=== PATIENT | female | born 1985 | race Caucasian/White ===

== ENCOUNTER → 2020-09-25 06:32 | Outpatient (CLI) | payer OTHER, SELFPAY ==
[2020-09-25 16:43] LABS: SARS-CoV-2 RNA PCR Positive
== END ==
PROVIDERS: PCP Physician Assistant; Visit Provider Physician Assistant
DX: U07.1 COVID-19 (principal); R68.89 Other general symptoms and signs
CPT/HCPCS: C9803; U0003; U0005

== ENCOUNTER 2021-09-25 18:29 | Emergency (ER) | payer OTHER, SELFPAY ==
--- NOTE | ~2021-09-25 | CT_ITS ---
Report EXAMINATION: CT abdomen pelvis w con DATE: 09/25/2021 21:08 INDICATION: LLQ pain, fever TECHNIQUE: Computed tomography (CT) of the abdomen and pelvis was performed with 100 mL Omnipaque-300 intravenous contrast. Automated exposure control and iterative reconstruction technique were employe d. The dose-length product was 474.37 mGy-cm. COMPARISON: None. FINDINGS: Lower thorax: Unremarkable Liver: Normal. Biliary/Gallbladder: Partially contracted. No bile duct dilation. Pancreas: No mass or duct dilation. Spleen: Normal. Adrenals:No mass. Kidneys: Subtle patchy areas of hypoenhancement in the left kidney, with minimal surrounding inflamma tory change. No renal mass or hydronephrosis. GI tract: No small or large bowel dilation. Normal appendix. Mesentery/Peritoneum: No ascites, mass, or free air. Retroperitoneum: No mass. Pelvis: Pelvic organs are within normal limits. Soft Tissues: Soft tissues and body wall unremarkable. Bones: No acute osseous finding. IMPRESSION: CT findings may represent left pyonephritis in the appropriate clinical context. Reviewed, dictated and finalized at location K. IMPRESSION: CT findings may represent left pyonephritis in the appropriate clinical context .
[2021-09-25 18:32] VITALS: BP 137/92; PULSE 98; RESP 18; TEMP 37; O2SAT 100
--- NOTE | 2021-09-25 19:19 | ED.GENADULT ---
HPI - General Adult General Chief complaint: Upper Respiratory Infection Stated complaint: FEVER,ABD PAIN Time Seen by Provider: 09/25/21 18:54 History of Present Illness HPI narrative: 36-year-old female presented to the emergency department for evaluation of nausea vomiting with fever and associated left lower quadrant abdominal pain. Patient states on Sunday after work she began feeling poorly. At that time patient was having nausea and vomiting. Patient did follow-up with urgent care on Sunday and was tested for strep COVID flu and this was all negative. Due to her underlying history of psoriasis and being on a biological the physician did start her on amoxicillin. Patient presents to the ED complaining of persistent fever that is treated with Tylenol. Patient is having left lower quadrant pain. Patient states she does have a prior history of ovarian cyst but states this was approximately 10 years ago. Patient denies any associated diarrhea. Related Data Allergies Allergy/AdvReac Type Severity Reaction Status Date / Time No Known Allergies Allergy Mild Unverified 10/28/09 19:07 Review of Systems Review of Systems: CONSTITUTIONAL: See HPI EYES: Denies visual changes, redness, or discharge. ENT: Denies rhinorrhea, congestion, sore throat, or otalgia. CARDIOVASCULAR: Denies chest pain, palpitations, or edema. RESPIRATORY: Cough GASTROINTESTINAL: See HPI GENITOURINARY: Denies dysuria or hematuria. SKIN: Denies rash or itching. MUSCULOSKELETAL: Denies back pain, joint pain, or myalgia. NEUROLOGIC: Denies headache, numbness, or weakness. Exam Narrative: APPEARANCE: Well appearing, no pain, no distress, well-nourished. HEAD: normocephalic, atraumatic. EYES: PERRLA/EOMI, conjunctivae clear. NOSE: Normal no drainage THROAT: Pharynx clear, no exudate. NECK: Supple. No adenopathy, no masses. RESPIRATORY: Airway patent, respirations nonlabored. Clear to auscultation bilaterally, no rales, rhonchi, wheezing. CARDIOVASCULAR: Regular rate and rhythm without murmurs rubs or gallops. ABDOMINAL: Soft, suprapubic and left lower quadrant pain MUSCULOSKELETAL: Moves all extremities. Strength/ROM intact, No edema, No calf tenderness. NEURO: Alert. Cranial nerves II through XII intact. Grossly intact SKIN: Warm, dry. Normal Color PSYCHIATRIC: Normal affect/mood. Course Course Emergency Course: Patient does have a leukocytosis of 13. No significant abnormalities on the CMP. Patient does have leukoesterase positive urine with trace bacteria. Patient has been taking amoxicillin. Due to the possibility of this being partially treated urinary tract infection patient was treated with an IV dose of Rocephin and also switched from amoxicillin to Keflex. Patient was updated on the results of the imaging and plan for change in her antibiotic regiment. All questions and concerns were addressed. Patient was stable at time of discharge. Vital Signs Vital signs: Vital Signs Temperature 98.6 F 09/25/21 18:32 Pulse Rate 98 09/25/21 18:32 Respiratory Rate 18 09/25/21 18:32 Blood Pressure 137/92 H 09/25/21 18:32 Pulse Oximetry 100 09/25/21 18:32 Oxygen Delivery Room Air 09/25/21 18:32 Temperature 98.6 F 09/25/21 18:32 Pulse Rate 98 09/25/21 18:32 Respiratory Rate 18 09/25/21 18:32 Blood Pressure 137/92 H 09/25/21 18:32 Pulse Oximetry 100 09/25/21 18:32 Oxygen Delivery Room Air 09/25/21 18:32 Medical Decision Making Vital Signs Vital Signs: Vital Signs Temperature 98.6 F 09/25/21 18:32 Pulse Rate 98 09/25/21 18:32 Respiratory Rate 18 09/25/21 18:32 Blood Pressure 137/92 H 09/25/21 18:32 Pulse Oximetry 100 09/25/21 18:32 Oxygen Delivery Room Air 09/25/21 18:32 Temperature 98.6 F 09/25/21 18:32 Pulse Rate 98 09/25/21 18:32 Respiratory Rate 18 09/25/21 18:32 Blood Pressure 137/92 H 09/25/21 18:32 Pulse Oximetry 100 09/25/21 18:32 Oxygen Delivery Room Air
[2021-09-25] MEDS: HYDROmorphone HCL INJ (*CRX) 1 MG/ML SYR 0.5 MG IV PUSH (19:31)
[2021-09-25] MEDS: ONDANSETRON INJ 4 MG/2 ML VIAL IV PUSH (19:32)
[2021-09-25] MEDS: SODIUM CHLORIDE 0.9% IV 1,000 ML 999 ML IV CONT (19:32)
[2021-09-25 19:42] LABS: Basophils Percent Auto 0.2 % (0.2-1.2); Eosinophils Absolute Auto 0.1 K/mm3 (0-0.3); Eosinophils Percent Auto 0.7 % (0-4.4); Hematocrit 39.6 % (37.0-47.0); Hemoglobin 13.3 g/dL (12.0-15.0); Immature Granulocyte Absolute 0.07 K/mm3 (0.00-0.031); Immature Granulocyte Percent A 0.5 % (0-0.5); Lymphocytes Absolute Auto 3.09 K/mm3 (0.9-3.2); Lymphocytes Percent Auto 23.9 % (18.3-44.2); Mean Corpuscular HGB Conc 33.6 g/dl (32-36); Mean Corpuscular Hemoglobin 29.6 pg (26-34); Mean Corpuscular Volume 88.2 fl (80-100); Mean Platelet Volume 9.8 fl (7.4-10.4); Monocytes Absolute Auto 1.1 K/mm3 (0.1-0.6); Monocytes Percent Auto 8.2 % (2.6-8.5); Neutrophils Absolute Auto 8.6 K/mm3 (1.3-6.7); Neutrophils Percent Auto 66.5 % (45.5-73.1); Platelet Count Result 305 k/mm3 (150-375); Red Blood Count 4.49 M/mm3 (4.2-5.4); Red Cell Distribution Width 12.2 % (11.5-14.5)
[2021-09-25 19:46] LABS: Appearance Urine Clear (Clear); Bilirubin Urine Negative (Negative); Glucose Urine UA Negative (Negative); Ketones Urine Negative (Negative); Leukocyte Esterase Ur 1+ LEU/UL (Negative); Nitrate Urine Negative (Negative); Protein Urine Negative (Negative); Urobilinogen Urine 0.2 mg/dL (<2.0)
[2021-09-25 19:50] LABS: Bacteria Urine Trace /hpf; RBC Urine 0-2 /hpf (0-2); Squamous Epithelial Cell Urine Few /hpf (Few); WBC Urine 0-3 /hpf
[2021-09-25 19:52] LABS: Lactic Acid Reflex 0.8 mmol/L (0.7-2.0)
[2021-09-25 19:53] LABS: Alanine Aminotransferase 63 U/L (6-35); Albumin Level 4.9 g/dL (3.5-5.1); Alkaline Phosphatase 67 U/L (38-126); Anion Gap 11 mmol/L (8-16); Aspartate Amino Transferase 44 U/L (14-36); Bilirubin,Total 0.4 mg/dL (0.2-1.3); Blood Urea Nitrogen 12 mg/dL (7-17); Calcium 9.8 mg/dL (8.4-10.2); Carbon Dioxide 31 mmol/L (22-30); Chloride 98 mmol/L (98-107); Estimated CRCL calculation 66 ml/min; Estimated Glomerular Filt Rate > 60; Glucose 104 mg/dL (65-110); Lipase 198 U/L (23-300); Potassium 3.6 mmol/L (3.4-5.0); Sodium 140 mmol/L (137-145)
[2021-09-25 20:01] LABS: Color Urine Straw (Yellow)
[2021-09-25 20:02] LABS: Add Urine Microscopic? YES; Blood Urine Trace-Intact (Negative)
[2021-09-25 20:22] LABS: SARS-CoV-2 RNA PCR Negative
== END 2021-09-25 22:01 | disposition home or self-care (01) ==
PROVIDERS: Emergency Provider Emergency Medicine; PCP Physician Assistant
DX: R50.9 Fever, unspecified (principal); R10.32 Left lower quadrant pain; Z20.822 Contact with and (suspected) exposure to COVID-19
CPT/HCPCS: 36415; 74177; 80053; 81001; 81025; 83605; 83690; 85025; 96361; 96365; 96375; 99284; C9803; J0696; J1170; J2405; J7030; Q9967; U0003; U0005

== ENCOUNTER 2023-11-01 01:36 | Day surgery (SDC) | payer BC, SELFPAY ==
--- NOTE | 2023-10-29 18:13 | PC.NURSE ---
Report to the Outpatient Waiting Room, entrance under the green pavilion located off [facility], at time ___0615____ on date [phone] . Planned Procedure Time: ____15____.? Time changes happen often and if your time is changed the preop area will call you the afternoon before. - You and your visitor will be asked to self-screen and do not enter if you have any COVID symptoms. Please call surgeon if you need to reschedule. - A mask is optional within the hospital at this time. Patients may have clear liquids (water, carbonated beverages, clear teas, apple juice) until 3 hours prior to surgery with a maximum of 20 ounces.(Stop at 0515) - No food from midnight until time of surgery and no smoking - Take only the following medications with a SIP of water on the morning of surgery: only paxil DO NOT STOP ANY OF YOUR OTHER PRESCRIPTION MEDICATIONS PRIOR TO SURGERY EXCEPT THE FOLLOWING Medications to discontinue per physician Stop vitamins and supplements TODAY. Do not take spironolactone the morning of surgery_. Please no make-up, nail vietnamese, hairspray, perfume, deodorant, or body powder the day of surgery.? No jewelry (including any body piercings) or valuables the day of surgery, leave them at home.? Please take a shower or bath the night before, or the morning of, surgery with an antibacterial soap.? Wear comfortable, loose fitting clothing.? - Jewelry must be removed prior to entering the operating room.? Rings and piercings that are not removed may be cut off. - The hospital will not accept responsibility for valuables.? - Please leave all valuables, including medications, at home the day of surgery. If you are going home after surgery, a licensed seasonal delivery driver must drive you home.? - NO public transportation without another adult if you receive anesthesia. - We recommend that an adult stay with you for 24 hours following discharge. - We also recommend that you do not drive, make important decision, drink alcoholic beverages, or take any drugs that were not prescribed by your health care provider for at least 24 hours after your discharge time. Follow any additional instructions given to you from your surgeon. Telephone instructions given to Dayday (patient) and asked if any additional questions and then verbalized understanding. Patient advised to call surgeon office or pre surgery nurse liaison [phone] if any additional questions.
[2023-10-29 18:18] VITALS: BMI 25.8
--- NOTE | 2023-10-31 13:45 | PM.IMHP ---
H&P: HPI History of Present Illness Date/Time: 10/31/23 13:45 38-year-old female presents for evaluation of irregular bleeding. Her menstrual cycles occur at 6-8 week intervals, this is not a particular concern as the bleeding is not particularly heavy. Also has noted bleeding after intercourse. Not currently on any type of control as her has had a vasectomy, future childbearing not of interest at this point. Does have a history of abnormal Pap smear in the past, most recent Pap smear was without abnormality and negative for HPV. Chief Complaint: Irregular bleeding Review of Systems Review of Systems: All systems reviewed & are unremarkable except as noted in HPI and below PMFSH Past Medical History Medical History Abnormal mammogram 10-07-2019 left breast asymmetrical dense tissue Dx mammogram and US done 10/09/2019 Benign recommend Annual screenings Abnormal Pap smear of cervix 11/01/05 LGSIL; 11/27/05 COLP/BX BENIGN ENDOCX TISSUES Anxiety Arthritis with psoriasis Encounter for IUD insertion 03/02/08 Mirena insertion 08/13/12 Mirena insertion Encounter for IUD removal 12/29/10 Mirena removal 02/12/13 Mirena removal Kidney infection Microcalcification of left breast on mammogram Screening mammogram, encounter for Sleep apnea Surgical History Surgical History History of colposcopy with cervical biopsy 11/27/05 benign History of dilation and curettage (~2010) History of intraocular lens implant (~07/2015) History of photorefractive keratectomy (PRK) (~11/2015) History of wisdom tooth extraction (~2003) Family History Family History Mother Malignant tumor of ovary Grandparent Malignant tumor of ovary maternal grandmother Breast cancer maternal grandmother Hypertension Diabetes mellitus Other Malignant tumor of ovary maternal aunt Breast cancer maternal aunt Father Hypertension Diabetes mellitus Heart disease Social History Social History (Updated 05/16/23 @ 13:43 by MELISA Sargent) Smoking status: Never smoker Second hand tobacco smoke exposure: No Alcohol intake: never Alcohol use details: 1 a month ? 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 Gender identity (if verbalized by the patient): Female Sexual Orientation (if Verbalized by the Patient): Straight or Heterosexual Spiritual care concerns: No Meds Home Medications and Allergies Home Medications Medication Instructions Recorded Confirmed Type paroxetine HCl 20 mg tablet 20 mg PO DAILY 11/22/21 10/29/23 History risankizumab-rzaa 150 mg/mL 150 mg subcut ONCE 11/22/21 10/29/23 History subcutaneous pen injector (Skyrizi) spironolactone 100 mg tablet 100 mg PO DAILY 11/22/21 10/29/23 History Allergies Allergy/AdvReac Type Severity Reaction Status Date / Time No Known Allergies Allergy Mild Verified 10/29/23 18:02 Exam Const: General: cooperative, healthy appearing and comfortable Resp: Effort & Inspection: normal respiratory effort Auscultation: clear to auscultation bilaterally Cardio: Rate: regular rate Rhythm: regular rhythm GI: Inspection: normal to inspection Auscultation: normal bowel sounds : External Female Exam: normal external appearance Speculum Exam - Vagina: normal appearance of the vagina Speculum Exam - Cervix: normal appearance of the cervix ( friable) Bimanual exam- vagina & uterus: enlarged ( 8-10 week size) Bimanual Exam- Adnexa, other: normal adnexae Assessment and Plan Assessment and plan (1) Irregular bleeding:
[2023-11-01] MEDS: ACETAMINOPHEN 500 MG TABLET 1000 MG PO (06:45)
[2023-11-01] MEDS: LACTATED RINGERS 1,000 ML 30 ML IV CONT ×2 (07:12→08:45)
[2023-11-01 07:23] LABS: Hematocrit 39.7 % (37.0-47.0); Hemoglobin 13.9 g/dL (12.0-15.0); Mean Corpuscular Hemoglobin 30.8 pg (26-34); Mean Platelet Volume 9.9 fl (7.4-10.4); Platelet Count Result 296 k/mm3 (150-375); Red Blood Count 4.51 M/mm3 (4.2-5.4); Red Cell Distribution Width 12.2 % (11.5-14.5)
--- NOTE | 2023-11-01 07:23 | WPDHPUPDATE1 ---
History and Physical Update Update Date/Time: 11/01/23 07:23 History and Physical has been reviewed, including an updated exam of the patient. There are NO changes in the patient's condition. Risks, benefits, and alternatives have been discussed and questions answered. Patient agrees to proceed with procedure.
[2023-11-01 07:27] VITALS: BP 123/85; PULSE 91; RESP 16; TEMP 36.3; O2SAT 100
[2023-11-01 07:43] LABS: BEDSIDEPREGUCG Negative
[2023-11-01 07:47] LABS: Anion Gap 12 mmol/L (4-12); Blood Urea Nitrogen 13 mg/dL (7-17); Calcium 9.4 mg/dL (8.4-10.2); Carbon Dioxide 26 mmol/L (22-30); Chloride 99 mmol/L (98-107); Estimated CRCL calculation 87 ml/min; Estimated Glomerular Filt Rate > 60; Glucose 112 mg/dL (65-110); Potassium 4.2 mmol/L (3.4-5.0); Sodium 137 mmol/L (137-145)
--- NOTE | 2023-11-01 07:47 | WPDANESEPPF ---
Anes - Initial Pre Proc Eval Procedure: Operation Date: 11/01/23 08:15 Proposed Procedures p Hysteroscopy Dilation and Curettage, - Eleno Villa MD s Loop Electrical Excision Procedure - Eleno Villa MD Date/Time: 11/01/23 07:47 Surgeon: Eleno Villa MD Pre Op Diagnosis: abnormal uterine bleeding Patient Data Age: 38 Gender: F Height: 1.68 m Weight: 78.5 kg Last Vital Signs Temp 97.4 F L 11/01/23 07:27 Pulse 91 11/01/23 07:27 Resp 16 11/01/23 07:27 BP 123/85 11/01/23 07:27 Pulse Ox 100 11/01/23 07:27 O2 Del Method Room Air 11/01/23 07:27 Allergies Allergy/AdvReac Type Severity Reaction Status Date / Time No Known Allergies Allergy Mild Verified 11/01/23 06:36 Home Medications Medication Instructions Recorded Confirmed Type paroxetine HCl 20 mg tablet 20 mg PO DAILY 11/22/21 11/01/23 History risankizumab-rzaa 150 mg/mL 150 mg subcut ONCE 11/22/21 10/29/23 History subcutaneous pen injector (Skyrizi) spironolactone 100 mg tablet 100 mg PO DAILY 11/22/21 11/01/23 History Laboratory Tests 11/01/23 11/01/23 06:58 07:27 WBC 8.0 K/mm3 (4.5-10.0) RBC 4.51 M/mm3 (4.2-5.4) Hgb 13.9 g/dL (12.0-15.0) Hct 39.7 % (37.0-47.0) MCV 88.0 fl (80-100) MCH 30.8 pg (26-34) MCHC 35.0 g/dl (32-36) RDW 12.2 % (11.5-14.5) Plt Count 296 k/mm3 (150-375) MPV 9.9 fl (7.4-10.4) Sodium Pending Potassium Pending Chloride Pending Carbon Dioxide Pending Anion Gap Pending BUN Pending Creatinine Pending Estim Creat Clear Calc Pending Estimated GFR Pending Glucose Pending Calcium Pending POC Urine HCG, Qual Negative POC Ur Preg QC Pending Patient hx anesthesia problems: none Family hx anesthesia problems: none Results Review: All pre-operative results and documents have been reviewed as part of the pre-operative evaluation. [facility] Past Medical History Medical History Abnormal mammogram 10-07-2019 left breast asymmetrical dense tissue Dx mammogram and US done 10/09/2019 Benign recommend Annual screenings Abnormal Pap smear of cervix 11/01/05 LGSIL; 11/27/05 COLP/BX BENIGN ENDOCX TISSUES Anxiety Arthritis with psoriasis Encounter for IUD insertion 03/02/08 Mirena insertion 08/13/12 Mirena insertion Encounter for IUD removal 12/29/10 Mirena removal 02/12/13 Mirena removal Kidney infection Microcalcification of left breast on mammogram Screening mammogram, encounter for Sleep apnea Surgical History Surgical History History of colposcopy with cervical biopsy 11/27/05 benign History of dilation and curettage (~2010) History of intraocular lens implant (~07/2015) History of photorefractive keratectomy (PRK) (~11/2015) History of wisdom tooth extraction (~2003) Family History Family History Mother Malignant tumor of ovary Grandparent Malignant tumor of ovary maternal grandmother Breast cancer maternal grandmother Hypertension Diabetes mellitus Other Malignant tumor of ovary maternal aunt Breast cancer maternal aunt Father Hypertension Diabetes mellitus Heart disease Social History Social History (Updated 05/16/23 @ 13:43 by MELISA Sargent) Smoking status: Never smoker Second hand tobacco smoke exposure: No Alcohol intake: never Alcohol use details: 1 a month ? 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
[2023-11-01] MEDS: ceFAZolin 2 GM/D5W 50 ML 2 GM/50 ML BAG IVPB (08:15)
[2023-11-01 08:45] VITALS: BP 102/67; PULSE 94; RESP 12; O2SAT 97
--- NOTE | 2023-11-01 08:45 | P.OP_ITS ---
Procedure Note - Detailed Date of Procedure 11/01/23 Pre-op Diagnosis 1. Irregular vaginal bleeding 2. Postcoital bleeding Post-op Diagnosis Same Procedure Performed 1. Hysteroscopy with uterine curettings 2. LEEP conization Surgeon Eleno Villa MD Anesthesia MAC Findings 1. Hysteroscopic exam revealed no significant abnormalities 2. Cervical exam with friable cervix otherwise no abnormalities Description of Procedure Patient prepped and draped in usual manner for this procedure. Cervix was dilated to allow the hysteroscope to be placed. Hysteroscopic exam revealed no abnormalities in the endometrial lining, curetting of all 4 quadrants was obtain ed without difficulty. Attention was then placed to the ectocervix which was removed in a superior fashion and then inferior fashion so that the entirety of the ectocervix was removed. There was minimal bleeding, the area which was bleeding was cauterized without difficulty. Patient was then sent to recovery room in stable condition. Estimated Blood Loss 10 Drains No Packing No Pathology Yes Complications No immediate complications Condition Stable Disposition PACU [facility] Billing Surgery - Charge Forward: Surgery Billing
[2023-11-01 09:15] VITALS: BP 119/77; PULSE 85
== END 2023-11-01 09:30 | disposition home or self-care (01) ==
PROVIDERS: PCP Physician Assistant; Visit Provider Obstetrics & Gynecology
PROC: 0U5B8ZZ Destruction of Endometrium, Via Natural or Artificial Opening Endoscopic (ICD-10-PCS; CPT 58563; principal; 2023-11-01 08:15)
PROC: 0UBC7ZZ Excision of Cervix, Via Natural or Artificial Opening (ICD-10-PCS; CPT 57522; 2023-11-01 08:15)
DX: N92.6 Irregular menstruation, unspecified (principal); N93.0 Postcoital and contact bleeding; L40.50 Arthropathic psoriasis, unspecified; F41.9 Anxiety disorder, unspecified; G47.30 Sleep apnea, unspecified; Z79.620 Long term (current) use of immunosuppressive biologic
CPT/HCPCS: 58558; 57522; 36415; 80048; 85027; 88305; 88307; A9270; J0690; J1100; J2250; J2405; J2704; J3010; J7120

== ENCOUNTER 2023-11-18 20:25 | Observation (INO) | payer BC, SELFPAY ==
[2023-11-18 20:34] VITALS: BP 154/90; PULSE 87; RESP 19; TEMP 36.9; O2SAT 100
--- NOTE | 2023-11-18 22:07 | PC.NURSE ---
Patient pad upon request.
[2023-11-18 22:30] LABS: Basophils Percent Auto 0.3 % (0.2-1.2); Eosinophils Absolute Auto 0.2 K/mm3 (0-0.3); Eosinophils Percent Auto 1.4 % (0-4.4); Hematocrit 38.5 % (37.0-47.0); Hemoglobin 13.3 g/dL (12.0-15.0); Immature Granulocyte Absolute 0.05 K/mm3 (0.00-0.031); Immature Granulocyte Percent A 0.4 % (0-0.5); Lymphocytes Absolute Auto 4.19 K/mm3 (0.9-3.2); Lymphocytes Percent Auto 31.7 % (18.3-44.2); Mean Corpuscular HGB Conc 34.5 g/dl (32-36); Mean Corpuscular Hemoglobin 30.2 pg (26-34); Mean Corpuscular Volume 87.5 fl (80-100); Mean Platelet Volume 9.6 fl (7.4-10.4); Monocytes Absolute Auto 0.6 K/mm3 (0.1-0.6); Monocytes Percent Auto 4.8 % (2.6-8.5); Neutrophils Absolute Auto 8.1 K/mm3 (1.3-6.7); Neutrophils Percent Auto 61.4 % (45.5-73.1); Platelet Count Result 367 k/mm3 (150-375); Red Cell Distribution Width 12.1 % (11.5-14.5); White Blood Count 13.2 K/mm3 (4.5-10.0)
[2023-11-18 22:41] LABS: Alanine Aminotransferase 25 U/L (6-35); Albumin Level 4.8 g/dL (3.5-5.1); Alkaline Phosphatase 49 U/L (38-126); Anion Gap 14 mmol/L (4-12); Aspartate Amino Transferase 35 U/L (14-36); Bilirubin,Total 0.2 mg/dL (0.2-1.3); Blood Urea Nitrogen 19 mg/dL (7-17); Calcium 9.6 mg/dL (8.4-10.2); Carbon Dioxide 27 mmol/L (22-30); Chloride 97 mmol/L (98-107); Estimated CRCL calculation 78 ml/min; Estimated Glomerular Filt Rate > 60; Glucose 106 mg/dL (65-110); Potassium 3.7 mmol/L (3.4-5.0); Prothrombin Time 13.4 Seconds (11.1-14.7); Sodium 138 mmol/L (137-145)
[2023-11-18 22:42] LABS: Partial Thromboplastin Time 31.3 Seconds (22.3-36.8)
[2023-11-19] VITALS (9 sets, daily range): BP systolic 100–124; BP diastolic 63–83; PULSE 83–98; RESP 12–17; TEMP 36.4–36.8; O2SAT 97–100; BMI 28.3
--- NOTE | 2023-11-19 00:58 | ED.FEMALEGU ---
HPI - Female Genitourinary General Chief complaint: Vaginal Bleeding Stated complaint: vag bleeding s/p surgery Time Seen by Provider: 11/19/23 00:34 Source: patient Mode of arrival: ambulatory Limitations: no limitations History of Present Illness HPI Narrative: This is a 38 year old female that presents to the ER for abnormal vaginal bleeding. Reports she had a LEEP procedure the end of last month. She has been having trouble with bleeding since. She saw her licensed life and health agent in the office this week and he placed Monsel's solution in the area which stopped the bleeding. Reports this worked for about 2 days. She started to experience bleeding again Sunday. Bleeding significantly worsened again today which prompted her to be seen. Related Data Home Medications Medication Instructions Recorded Confirmed paroxetine HCl 20 mg tablet 20 mg PO DAILY 11/22/21 11/14/23 risankizumab-rzaa 150 mg/mL 150 mg subcut ONCE 11/22/21 11/14/23 subcutaneous pen injector (Skyrizi) spironolactone 100 mg tablet 100 mg PO DAILY 11/22/21 11/14/23 Allergies Allergy/AdvReac Type Severity Reaction Status Date / Time No Known Allergies Allergy Mild Verified 11/18/23 20:38 Review of Systems Review of Systems: CONSTITUTIONAL: Denies fever GASTROINTESTINAL: Denies abdominal pain, nausea, vomiting GENITOURINARY: Denies dysuria All systems reviewed & are unremarkable except as noted in HPI and below PMFSH Past Medical History Medical History Abnormal mammogram 10-07-2019 left breast asymmetrical dense tissue Dx mammogram and US done 10/09/2019 Benign recommend Annual screenings Abnormal Pap smear of cervix 11/01/05 LGSIL; 11/27/05 COLP/BX BENIGN ENDOCX TISSUES Anxiety Arthritis with psoriasis Encounter for IUD insertion 03/02/08 Mirena insertion 08/13/12 Mirena insertion Encounter for IUD removal 12/29/10 Mirena removal 02/12/13 Mirena removal Kidney infection Microcalcification of left breast on mammogram Screening mammogram, encounter for Sleep apnea Surgical History Surgical History H/O LEEP (11/01/23) Benign History of colposcopy with cervical biopsy 11/27/05 benign History of dilation and curettage (~2010) History of intraocular lens implant (~07/2015) History of photorefractive keratectomy (PRK) (~11/2015) History of wisdom tooth extraction (~2003) Family History Family History Mother Malignant tumor of ovary Grandparent Malignant tumor of ovary maternal grandmother Breast cancer maternal grandmother Hypertension Diabetes mellitus Other Malignant tumor of ovary maternal aunt Breast cancer maternal aunt Father Hypertension Diabetes mellitus Heart disease Social History Social History Smoking status: Never smoker Second hand tobacco smoke exposure: No Alcohol intake: never Alcohol use details: 1 a month ? 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 HEAD: Normocephalic, atraumatic. EYES: EOMI. CHEST: No respiratory distress. HEART: Regular rate EXTREMITIES: Normal range of motion. No edema. SKIN: Warm, dry, no rash. NEURO: No focal deficits. Alert and oriented x3. PSYCH: Normal mood and affect PELVIC: Cervix is friable, large blood clots in the vaginal vault. Bright red bl
[2023-11-19] MEDS: SODIUM CHLORIDE 0.9% IV 1,000 ML 999 ML IV CONT (01:04)
[2023-11-19] MEDS: TRANEXAMIC ACID 1,000 MG/10 ML AMPUL 780 MG IV PUSH (01:26)
[2023-11-19] MEDS: SODIUM CHLORIDE 0.9% IV 1,000 ML 125 ML IV CONT ×2 (02:35→10:45)
--- NOTE | 2023-11-19 06:40 | PM.IMHP ---
H&P: HPI History of Present Illness Date/Time: 11/19/23 06:40 Chief Complaint: vaginal bleeding Narrative: Dayday is a 38yo [id number] presented to the ER for vaginal bleeding. She presented for outpatient follow-up on 11/14/23 after having LEEP conization, HSC, D&C done 11/01/23. Did well for the 1st week and then began have bleeding with small clots, this has continued for the past 4-5 days. No significant pain or discomfort, has not had any intercourse or tampons placed. In office, Monsels solution was placed on the LEEP bed. She did not have any bleeding until the PM of 11/18/23. She once again began passing large clots and needing to change a pad every 1-2 hours. In the ER, labs/vitals were stable but she was found to be bleeding (slow trickle), vaginal packing and zhu catheter were placed. She has been NPO overnight for possible OR today. Review of Systems Constitutional: Constitutional: Denies chills, Denies fever(s) and Denies headache(s) Eyes: Eyes: Denies change in vision ENT: Denies dizziness and Denies headache(s) Cardiovascular: Cardiovascular: Denies chest pain and Denies dyspnea Respiratory: Respiratory: Denies cough and Denies dyspnea Gastrointestinal: Gastrointestinal: Denies abdominal pain and Denies change in stool character Genitourinary: Genitourinary: Denies abnormal menses, Reports abnormal vaginal bleeding, Denies pelvic pain, Denies vaginal discharge, Denies vaginal odor and Denies vaginal pruritus Neurologic: Denies dizziness and Denies headache(s) Psychiatric: Psychiatric: Denies anxiety and Denies depression [facility] Past Medical History Medical History Abnormal mammogram 10-07-2019 left breast asymmetrical dense tissue Dx mammogram and US done 10/09/2019 Benign recommend Annual screenings Abnormal Pap smear of cervix 11/01/05 LGSIL; 11/27/05 COLP/BX BENIGN ENDOCX TISSUES Anxiety Arthritis with psoriasis Encounter for IUD insertion 03/02/08 Mirena insertion 08/13/12 Mirena insertion Encounter for IUD removal 12/29/10 Mirena removal 02/12/13 Mirena removal Kidney infection Microcalcification of left breast on mammogram Screening mammogram, encounter for Sleep apnea Surgical History Surgical History H/O LEEP (11/01/23) Benign History of colposcopy with cervical biopsy 11/27/05 benign History of dilation and curettage (~2010) History of intraocular lens implant (~07/2015) History of photorefractive keratectomy (PRK) (~11/2015) History of wisdom tooth extraction (~2003) Family History Family History Mother Malignant tumor of ovary Grandparent Malignant tumor of ovary maternal grandmother Breast cancer maternal grandmother Hypertension Diabetes mellitus Other Malignant tumor of ovary maternal aunt Breast cancer maternal aunt Father Hypertension Diabetes mellitus Heart disease Social History Social History Smoking status: Never smoker Second hand tobacco smoke exposure: No Alcohol intake: never Alcohol use details: 1 a month ? 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
[2023-11-19 07:03] LABS: Hematocrit 34.1 % (37.0-47.0); Hemoglobin 11.6 g/dL (12.0-15.0); Mean Corpuscular Hemoglobin 30.1 pg (26-34); Mean Corpuscular Volume 88.6 fl (80-100); Mean Platelet Volume 9.5 fl (7.4-10.4); Platelet Count Result 304 k/mm3 (150-375); Red Blood Count 3.85 M/mm3 (4.2-5.4); Red Cell Distribution Width 12.2 % (11.5-14.5)
[2023-11-19 07:16] LABS: Alanine Aminotransferase 21 U/L (6-35); Albumin Level 4.2 g/dL (3.5-5.1); Alkaline Phosphatase 42 U/L (38-126); Anion Gap 9 mmol/L (4-12); Aspartate Amino Transferase 24 U/L (14-36); Bilirubin,Total 0.3 mg/dL (0.2-1.3); Blood Urea Nitrogen 13 mg/dL (7-17); Calcium 8.8 mg/dL (8.4-10.2); Carbon Dioxide 26 mmol/L (22-30); Chloride 102 mmol/L (98-107); Estimated CRCL calculation 88 ml/min; Estimated Glomerular Filt Rate > 60; Glucose 107 mg/dL (65-110); Potassium 3.9 mmol/L (3.4-5.0); Sodium 137 mmol/L (137-145)
--- NOTE | 2023-11-19 10:52 | WPDHPUPDATE1 ---
History and Physical Update Update Date/Time: 11/19/23 10:52 History and Physical has been reviewed, including an updated exam of the patient. There are NO changes in the patient's condition. Risks, benefits, and alternatives have been discussed and questions answered. Patient agrees to proceed with exam under anesthesia with cauterization of leep bed, and possible stay sutures.
[2023-11-19] MEDS: LACTATED RINGERS 1,000 ML 30 ML IV CONT (12:40)
--- NOTE | 2023-11-19 13:11 | WPDANESEPPF ---
Anes - Initial Pre Proc Eval Procedure: Operation Date: 11/19/23 13:15 Proposed Procedures p Vaginal Examination Under Anesthesia, Cauterization of Loop Electrical Excision Bed - Court Shane MD Date/Time: 11/19/23 13:11 Surgeon: Court Shane MD Pre Op Diagnosis: Abnormal uterine bleeding Patient Data Age: 38 Gender: F Height: 1.68 m Weight: 79.8 kg Last Vital Signs Temp 36.8 C 11/19/23 12:42 Pulse 83 11/19/23 12:42 Resp 14 11/19/23 12:42 BP 120/78 11/19/23 12:42 Pulse Ox 100 11/19/23 12:42 O2 Del Method Room Air 11/19/23 12:42 Allergies Allergy/AdvReac Type Severity Reaction Status Date / Time No Known Allergies Allergy Mild Verified 11/19/23 12:44 Home Medications Medication Instructions Recorded Confirmed Type paroxetine HCl 20 mg tablet 20 mg PO DAILY 11/22/21 11/19/23 History risankizumab-rzaa 150 mg/mL 150 mg subcut ONCE 11/22/21 11/19/23 History subcutaneous pen injector (Kristi) spironolactone 100 mg tablet 100 mg PO DAILY 11/22/21 11/19/23 History drrjluyz-wbew-ldese acid 120 1 tablet PO DAILY 11/19/23 11/19/23 History mcg-herb no.293 37.5 mg chewable tablet (Alive Women's Gummy Vitamin) Laboratory Tests 11/18/23 11/19/23 22:22 06:52 WBC 13.2 H K/mm3 11.0 H K/mm3 (4.5-10.0) (4.5-10.0) RBC 4.40 M/mm3 3.85 L M/mm3 (4.2-5.4) (4.2-5.4) Hgb 13.3 g/dL 11.6 L g/dL (12.0-15.0) (12.0-15.0) Hct 38.5 % 34.1 L % (37.0-47.0) (37.0-47.0) MCV 87.5 fl 88.6 fl (80-100) (80-100) MCH 30.2 pg 30.1 pg (26-34) (26-34) MCHC 34.5 g/dl 34.0 g/dl (32-36) (32-36) RDW 12.1 % 12.2 % (11.5-14.5) (11.5-14.5) Plt Count 367 k/mm3 304 k/mm3 (150-375) (150-375) MPV 9.6 fl 9.5 fl (7.4-10.4) (7.4-10.4) Immature Gran % (Auto) 0.4 % (0-0.5) Neut % (Auto) 61.4 % (45.5-73.1) Lymph % (Auto) 31.7 % (18.3-44.2) [place] % (Auto) 4.8 % (2.6-8.5) Eos % (Auto) 1.4 % (0-4.4) Baso % (Auto) 0.3 % (0.2-1.2) Lymph # (Auto) 4.19 H K/mm3 (0.9-3.2) [place] # (Auto) 0.6 K/mm3 (0.1-0.6) Eos # (Auto) 0.2 K/mm3 (0-0.3) Baso # (Auto) 0.0 K/mm3 (0.0-0.1) Abs Immat Gran (auto) 0.05 H K/mm3 (0.00-0.031) Absolute Neuts (auto) 8.1 H K/mm3 (1.3-6.7) Absolute Nucleated RBC 0.000 K/mm3 (0.0-0.012) Nucleated RBC % 0.0 % (0.0-0.2) PT 13.4 Seconds (11.1-14.7) INR 1.0 APTT 31.3 Seconds (22.3-36.8) Sodium 138 mmol/L 137 mmol/L (137-145) (137-145) Potassium 3.7 mmol/L 3.9 mmol/L (3.4-5.0) (3.4-5.0) Chloride 97 L mmol/L 102 mmol/L (98-107) (98-107) Carbon Dioxide 27 mmol/L 26 mmol/L (22-30) (22-30) Anion Gap 14 H mmol/L 9 mmol/L (4-12) (4-12) BUN 19 H mg/dL 13 D mg/dL (7-17) (7-17) Creatinine 0.90 mg/dL 0.80 mg/dL (0.7-1.0) (0.7-1.0) Estim Creat Clear Calc 78 ml/min 88 ml/min Estimated GFR > 60 > 60 (59 - ) (59 - ) Glucose 106 mg/dL 107 mg/dL (65-110) (65-110) Calcium 9.6 mg/dL 8.8 mg/dL (8.4-10.2) (8.4-10.2) Total Bilirubin 0.2 mg/dL 0.3 mg/dL (0.2-1.3) (0.2-1.3) AST 35 U/L 24 U/L (14-36) (14-36) ALT 25 U/L 21 U/L (6-35) (6-35) Alkaline Phosphatase 49 U/L 42 U/L (38-126) (38-126) Total Protein 8.0 g/dL 7.0 g/dL (6.3-8.2) (6.3-8.2) Albumin 4.8 g/dL 4.2 g/dL (3.5-5.1) (3.5-5.1) Patient hx anesthesia problems: none Family hx anesthesia problems: none Results Review: All pre-operative results and documents have been reviewed as part of the pre-operative evaluation. [facility] Past Medical History Medical History Abnormal mammogram 10-07-2019 left breast asymmetrical dense tissue Dx mammogram and US done 10/09/2019 Benign recommend Annual screenings Abnormal Pap smear of ce
--- NOTE | 2023-11-19 14:40 | W.PM.PROC2 ---
Procedure Note - Detailed Date of Procedure 11/19/23 Pre-op Diagnosis Abnormal vaginal bleeding H/o recent LEEP procedure Post-op Diagnosis Same Procedure Performed Exam under anesthesia, cauterization of LEEP bed, placement of stay sutures and Surgicel into the LEEP bed Surgeon Court Shane MD Anesthesia MAC Findings The vaginal packing was removed from the vagina and was noted to be fully saturated. The LEEP bed was noted to have a large clot; the Monsel's scab was partially off; the LEEP bed was fully cleaned and cauterized. Good hemostasis was then noted. Stay sutures were placed and Surgicel was placed and tied into place using the stay sutures. No further bleeding was noted. Wheat catheter was then removed. Description of Procedure Dayday was taken to the operating room where she was placed under MAC sedation without complications. She was then prepped and draped in the normal fashion in the dorsal lithotomy position with her legs in low Mic stirrups. A time-out was performed and no preoperative antibiotics were indicated. The vaginal packing (that was placed in the ER) was removed in whole and discarded; was fully saturated with blood. A coated speculum attached to suction was then placed within the vagina, where the cervix was easily identified. The cervix was then cleaned using suction and a sponge on a stick. The old Monsel's scab was partially off, the other portion was removed, as well as an old adhered clot. Two stay sutures using 0-Vicryl were then placed from 2 to 4 o'clock and from 10 to 8 o'clock. The LEEP bed was then cauterized using the roller ball. Good hemostasis was noted. Surgicel 4x8cm was then placed in the LEEP bed and the two stay sutures were tied together to keep the sheet of Surgicel in place. Good hemostasis was noted. All instruments were removed from the vagina. The Wheat catheter was then removed. Sponge, lap, instrument, and needle counts were correct at the end of the procedure. The patient was awoken from anesthesia and taken to recovery in a stable condition with plans of discharge home this afternoon. Estimated Blood Loss 10 IV Fluids 600 Urine Output 200 (Wheat catheter removed in the OR) Packing No (packing placed in the vagina was removed in the OR) Pathology None sent Complications No immediate complications Condition Stable Disposition Floor (then to be discharged home from the floor) [facility] Billing Surgery - Charge Forward: Surgery Billing
--- NOTE | 2023-11-21 06:34 | PM.DS ---
DS: Admitting Diagnosis Discharge Date 11/19/23 Admitting Diagnosis Abnormal vaginal bleeding H/o LEEP DS: Discharge Diagnosis Discharge Diagnosis (1) Abnormal vaginal bleeding: Code(s): N93.9 - Abnormal uterine and vaginal bleeding, unspecified Status: Acute (2) H/O LEEP: Onset Date: 11/01/23 Code(s): Z98.890 - Other specified postprocedural states Status: Acute DS: Summary Hospital Course Hospital Course: Dayday is a 38yo [id number] presented to the ER for vaginal bleeding. She presented for outpatient follow-up on 11/14/23 after having LEEP conization, HSC, D&C done 11/01/23. Did well for the 1st week and then began have bleeding with small clots, this has continued for the past 4-5 days. No significant pain or discomfort, has not had any intercourse or tampons placed. In office, Monsels solution was placed on the LEEP bed. She did not have any bleeding until the PM of 11/18/23. She once again began passing large clots and needing to change a pad every 1-2 hours. In the ER, labs/vitals were stable but she was found to be bleeding (slow trickle), vaginal packing and zhu catheter were placed. She was NPO overnight with IV fluids. She was taken to the OR on 11/18/22. Please see operative report for full details. Surgery was successful and stopped the bleeding from her LEEP bed. She was then discharged home in a stable condition after surgery. Status at Discharge Functional status at discharge: independent ambulation Overall status at discharge: patient is back to baseline Time Spent with Patient Time attestation: Total time spent providing and/or coordinating discharge services: Time spent: Less than 30 minutes Exam Const: General: cooperative, healthy appearing, comfortable and no acute distress Orientation/consciousness: patient oriented x3 Resp: Effort & Inspection: normal respiratory effort Cardio: Rate: regular rate GI: Inspection: normal to inspection GI Palp: No abdominal tenderness and Yes Soft to palpation Skin: General skin exam: normal color Neuro: General: patient oriented x3 Extrem: General: normal to inspection Psych: Appearance: grossly normal Affect: normal affect Attitude: cooperative Discharge Plan Discharge Attending physician on discharge: Coutr Shane Consulting providers: Ronnie Brennan; Luis Antonio Ybarra Discharging Clinician: Court Shane Anticipated Discharge Date/Time: 11/19/23 16:30 Patient Disposition: Home, Self-Care Activity: may shower, no straining, pelvic rest and other - see discharge instructions Diet: regular Discharge Instructions: No lifting over 10 pounds for the next two weeks. Patient Instructions: Loop Electrosurgical Excision Procedure (DC) Stand Alone Forms: General Discharge Information, Work/School Release IP Follow-up/Referrals: Isiah,ROSA M Jaffe [Primary Care Provider] - Discharge Medications: New acetaminophen 500 mg tablet 1,000 mg PO TID Qty: 60 0RF ibuprofen 800 mg tablet 800 mg PO TID Qty: 30 0RF Continued spironolactone 100 mg tablet 100 mg PO DAILY paroxetine HCl 20 mg tablet 20 mg PO DAILY Skyrizi 150 mg/mL pen injector 150 mg subcut ONCE Rx Instructions: q 3 months Alive Women's Gummy Vitamin 120 mcg- 37.5 mg Tablet,Chewable 1 tablet PO DAILY Date of admission: 11/19/23 01:08 Primary Care Provider: IsiahAlannah Admitting Provider: Court Shane Attending physician on admission: Court Shane Condition: Stable
== END 2023-11-19 17:06 | disposition home or self-care (01) ==
LOC: ANHED 11-19 01:45 → ANH3MEDSUR 11-19 02:08
PROVIDERS: Emergency Medicine; Admitting Provider Obstetrics & Gynecology; Emergency Provider Physician Assistant; PCP Physician Assistant; Visit Provider Obstetrics & Gynecology
PROC: 0UBC7ZZ Excision of Cervix, Via Natural or Artificial Opening (ICD-10-PCS; CPT 57522; principal; 2023-11-19 13:15)
DX: N99.820 Postprocedural hemorrhage of a genitourinary system organ or structure following a genitourinary system procedure (principal); N93.9 Abnormal uterine and vaginal bleeding, unspecified; Y83.8 Other surgical procedures as the cause of abnormal reaction of the patient, or of later complication, without mention of misadventure at the time of the procedure; F41.9 Anxiety disorder, unspecified; L40.50 Arthropathic psoriasis, unspecified; L40.9 Psoriasis, unspecified; G47.30 Sleep apnea, unspecified; Z79.620 Long term (current) use of immunosuppressive biologic
CPT/HCPCS: 57510; 36415; 80053; 85025; 85027; 85610; 85730; 96361; 96374; 99285; G0378; J2250; J3010; J7030; J7120